=== PATIENT | female | born 2000 | race Caucasian/White ===

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

== ENCOUNTER 2025-01-10 21:57 | Emergency (ER) | payer OTHER ==
[2025-01-10 22:25] VITALS: TEMP 97.7
[2025-01-10] MEDS ORDERED: Zofran 4 MG/2 ML VIAL ONE (22:29)
[2025-01-10] MEDS ORDERED: MORPHINE SULFATE 2 MG INJ ONE (22:30)
[2025-01-10] MEDS ORDERED: Sodium Chloride 0.9% 1000 ML 1,000 ML ONE ×2 (22:30→23:53)
--- NOTE | 2025-01-10 22:31 | ERPHSYRPT ---
- History of Present Illness Time Seen by Provider: 01/10/25 22:25 Historian: patient, family Exam Limitations: no limitations Physician History: This is a send 24-year-old white female patient of nurse practitioner Pamella who was brought into the emergency department accompanied by her mother who is a nurse here at the hospital with a complaint of epigastric pain for approximately 2 to 3 days. Today she had vomiting. Patient has a history of gastroesophageal reflux disease and earlier this morning she took her omeprazole. The patient, 3 days ago, underwent wisdom teeth extraction. Postoperatively she was given antibiotic and Toradol. Because of her symptoms, she was told by her primary care provider and dentist to stop taking those medications. Patient has not had any diarrhea or flulike symptoms. Patient underwent an upper and lower endoscopy in July 2024 and per patient and her mother there were no abnormalities. Patient does not have a history of bulimia. Timing/Duration: day(s) (3) Activities at Onset: none Quality: aching Abdominal Pain Onset Location: epigastric Pain Radiation: no radiation Severity of Pain-Max: mild (Moderate) Severity of Pain-Current: mild (To moderate) Modifying Factors: Improves With: vomiting Associated Symptoms: loss of appetite, nausea, vomiting Previous symptoms: no prior history, no recent treatment Allergies/Adverse Reactions: Penicillins Adverse Reaction (Verified 01/10/25 22:03) Vomiting Hx Tetanus, Diphtheria Vaccination/Date Given: Yes Hx Influenza Vaccination/Date Given: No Hx Pneumococcal Vaccination/Date Given: No Travel Risk - International Travel Have you traveled outside of the country in past 3 weeks: No - Emerging Infectious Disease Are you exhibiting symptoms associated with any current EIDs: No - Review of Systems Constitutional: No Symptoms Eyes: No Symptoms Ears, Nose, & Throat: No Symptoms Respiratory: No Symptoms Cardiac: No Symptoms Abdominal/Gastrointestinal: Abdominal Pain (Gastric pain), Nausea, Vomiting, Appetite Changes Genitourinary Symptoms: No Symptoms Musculoskeletal: No Symptoms Skin: No Symptoms Neurological: No Symptoms Psychological: No Symptoms Endocrine: No Symptoms Hematologic/Lymphatic: No Symptoms Immunological/Allergic: No Symptoms All Other Systems: Reviewed and Negative - Past Medical History Pertinent Past Medical History: No - Past Surgical History Past Surgical History: No Other Surgical History: egd/colonoscopy - Female History Hx Now: No - Social History Drug Use: none - Nursing Vital Signs Nursing Vital Signs: Initial Vital Signs Temperature 97.7 F 01/10/25 22:03 Pulse Rate 66 01/10/25 22:03 Respiratory Rate 16 01/10/25 22:03 Blood Pressure 141/73 01/10/25 22:03 O2 Sat by Pulse Oximetry 99 01/10/25 22:03 Pain Scale Pain Intensity 4 - Physical Exam General Appearance: mild distress, alert, anxiety, thin Eye Exam: PERRL/EOMI, eyes nml inspection Ears, Nose, Throat Exam: normal ENT inspection, moist mucous membranes Neck Exam: normal inspection, non-tender, supple, full range of motion Respiratory Exam: normal breath sounds, lungs clear, airway intact, No chest tenderness, No respiratory distress Cardiovascular Exam: regular rate/rhythm, normal heart sounds, normal peripheral pulses Gastrointestinal/Abdomen Exam: soft, normal bowel sounds, tenderness (Epigast rium to palpation), guarding (Epigastrium to palpation), No rebound Pelvic Exam: not done Rectal Exam: not done Back Exam: normal inspection, normal range of motion, No CVA tenderness, No vertebral tenderness Extremity Exam: normal inspection, normal range of motion, pelvis stable Neurologic Exam: alert, oriented x 3, cooperative, 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 as tested, nml cerebellar function, nml station & gait, sensation nml Skin Exam: normal color, warm, dry Lymphatic Exam: No adenopathy SpO2 Interpretation: normal O2 Delivery: Room Air - Course Nursing assessment & vital signs reviewed: Yes Ordered Tests: Active Orders 24 hr Category Date Time Status IV Insertion STAT Care 01/10/25 22:17 Active ABDOMEN AND PELVIS W/0 CONTRAS [CT] Stat Exams 01/10/25 22:18 Completed AMYLASE Stat Lab 01/10/25 22:45 Completed CBC W DIFF Stat Lab 01/10/25 22:45 Completed CMP Stat Lab 01/10/25 22:45 Completed CULTURE,URINE Stat Lab 01/10/25 22:26 Received HCG QUALITATIVE, URINE Stat Lab 01/10/25 22:45 Completed LIPASE Stat Lab 01/10/25 22:45 Completed Lactic Acid Stat Lab 01/10/25 22:17 Completed UA W/RFX UR CULTURE Stat Lab 01/10/25 22:26 Completed Medication Summary Generic Name Dose Route Start Last Admin Trade Name Freq PRN Reason Stop Dose Admin Sodium Chloride 1,000 mls @ 999 mls/hr 01/10/25 23:50 01/10/25 23:54 Sodium Chloride 0.9% 1000 Ml IV 01/11/25 00:50 999 mls/hr .Q1H1M STA Administration Discontinued Medications Generic Name Dose Route Start Last Admin Trade Name Santiago PRN Reason Stop Dose Admin Sodium Chloride 1,000 mls @ 999 mls/hr 01/10/25 22:17 01/10/25 23:37 Sodium Chloride 0.9% 1000 Ml IV 01/10/25 23:17 Infused .Q1H1M STA Infusion Sodium Chloride Confirm 01/10/25 22:30 Sodium Chloride 0.9% 1000 Ml Administered 01/10/25 22:31 Dose 1,000 mls @ ud .ROUTE .STK-MED ONE Sodium Chloride Confirm 01/10/25 23:53 Sodium Chloride 0.9% 1000 Ml Administered 01/10/25 23:54 Dose 1,000 mls @ ud .ROUTE .STK-MED ONE Ceftriaxone Sodium 1 gm in 100 mls @ 200 mls/hr 01/11/25 00:03 01/11/25 00:36 Rocephin 1 Gm / 100 Ml Nacl IV 01/11/25 00:32 Infused STAT ONE Infusion Ceftriaxone Sodium Confirm 01/11/25 00:04 Rocephin 1 Gm / 100 Ml Nacl Administered 01/11/25 00:05 Dose 1 gm in 100 mls @ ud IV .STK-MED ONE Morphine Sulfate 2 mg 01/10/25 22:28 01/10/25 22:34 Morphine Sulfate 2 Mg/Ml Inj IV 01/10/25 22:29 2 mg STAT ONE Administration Morphine Sulfate Confirm 01/10/25 22:30 Morphine Sulfate 2 Mg/Ml Inj Administered 01/10/25 22:31 Dose 2 mg .ROUTE .STK-MED ONE Ondansetron HCl 4 mg 01/10/25 22:17 01/10/25 22:34 Ondansetron Hcl 4 Mg/2 Ml Vial IV 01/10/25 22:18 4 mg STAT ONE Administration Ondansetron HCl Confirm 01/10/25 22:29 Ondansetron Hcl 4 Mg/2 Ml Vial Administered 01/10/25 22:30 Dose 4 mg .ROUTE .STK-MED ONE Lab/Rad Data: Laboratory Result Diagrams 01/10/25 22:45 01/10/25 22:45 Laboratory Results 01/10/25 01/10/25 01/10/25 Range/Units 22:45 22:45 22:45 WBC 17.3 H (3.98-10.04) x10^3/uL RBC 4.92 (3.93-5.22) x10^6/uL Hgb 14.9 (11.2-15.7) g/dL Hct 43.8 (34.1-44.9) % MCV 89.0 (79.4-94.8) fL MCH 30.3 (25.6-32.2) pg MCHC 34.0 (32.2-35.5) g/dL RDW 11.9 (11.7-14.4) % Plt Count 333 (182-369) x10^3/uL MPV 11.7 (9.4-12.3) fL Gran % 75.7 H (34.0-71.1) % Immature Gran % (Auto) 0.4 (0.001-0.429) % Nucleat RBC Rel Count 0.0 (0.00-0.2) % Eos # (Auto) 0.01 L (0.04-0.36) x10^3/uL Immature Gran # (Auto) 0.07 H (0.001-0.031) x10^3u/L Absolute Lymphs (auto) 2.39 (1.18-3.74) x10^3/uL Absolute Monos (auto) 1.64 H (0.24-0.86) x10^3/uL Absolute Nucleated RBC 0.00 (0.00-0.012) x10^3u/L Lymphocytes % 13.8 L (19.3-51.7) % Monocytes % 9.5 (4.7-12.5) % Eosinophils % 0.1 L (0.7-5.8) % Basophils % 0.5 (0.1-1.2) % Absolute Granulocytes 13.08 H (1.56-6.13) x10^3/uL Basophils # 0.09 H (0.01-0.08) x10^3/uL Sodium 137 (135-145) mmol/L Potassium 4.4 (3.5-5.1) mmol/L Chloride 96 L (98-107) mmol/L Carbon Dioxide 27 (22-30) mmol/L Anion Gap 18.7 H (5-15) MEQ/L BUN 14 (7-17) mg/dL Creatinine 0.81 (0.52-1.04) mg/dL Estimated GFR 104.5 ML/MIN Glucose 94 (74-106) mg/dL Lactic Acid (0.4-2.0) Calcium 9.8 (8.4-10.2) mg/dL Total Bilirubin 1.30 (0.2-1.3) mg/dL AST 38 H (14-36) U/L ALT 19 (0-35) U/L Alkaline Phosphatase 44 (38-126) U/L Serum Total Protein 8.4 H (6.3-8.2) g/dL Albumin 4.9 (3.5-5.0) g/dL Amylase 89 (30-110) U/L Lipase 68 (23-300) U/L Urine Color (Yellow) Urine Appearance (Clear) Urine pH (4.6-8.0) Ur Specific [place] (1.005-1.030) Urine Protein (Negative) Urine Glucose (UA) (Negative) mg/dL Urine Ketones (Negative) Urine Blood (Negative) Urine Nitrite (Negative) Urine Bilirubin (Negative) Urine Urobilinogen (0.2) mg/dL Ur Leukocyte Esterase (Negative) U Hyaline Cast (Auto) (0-2) /LPF Urine Microscopic RBC (0-5) /HPF Urine Microscopic WBC (0-5) /HPF Ur Epithelial Cells (None Seen) /HPF Urine Bacteria (None Seen) /HPF Urine Culture Reflexed (NO) Urine HCG, Qual NEGATIVE (NEGATIVE) Slides for Path Review YES 01/10/25 01/10/25 Range/Units 22:26 22:17 WBC (3.98-10.04) x10^3/uL RBC (3.93-5.22) x10^6/uL Hgb (11.2-15.7) g/dL Hct (34.1-44.9) % MCV (79.4-94.8) fL MCH (25.6-32.2) pg MCHC (32.2-35.5) g/dL RDW (11.7-14.4) % Plt Count (182-369) x10^3/uL MPV (9.4-12.3) fL Gran % (34.0-71.1) % Immature Gran % (Auto) (0.001-0.429) % Nucleat RBC Rel Count (0.00-0.2) % Eos # (Auto) (0.04-0.36) x10^3/uL Immature Gran # (Auto) (0.001-0.031) x10^3u/L Absolute Lymphs (auto) (1.18-3.74) x10^3/uL Absolute Monos (auto) (0.24-0.86) x10^3/uL Absolute Nucleated RBC (0.00-0.012) x10^3u/L Lymphocytes % (19.3-51.7) % Monocytes % (4.7-12.5) % Eosinophils % (0.7-5.8) % Basophils % (0.1-1.2) % Absolute Granulocytes (1.56-6.13) x10^3/uL Basophils # (0.01-0.08) x10^3/uL Sodium (135-145) mmol/L Potassium (3.5-5.1) mmol/L Chloride (98-107) mmol/L Carbon Dioxide (22-30) mmol/L Anion Gap (5-15) MEQ/L BUN (7-17) mg/dL Creatinine (0.52-1.04) mg/dL Estimated GFR ML/MIN Glucose (74-106) mg/dL Lactic Acid 2.0 (0.4-2.0) Calcium (8.4-10.2) mg/dL Total Bilirubin (0.2-1.3) mg/dL AST (14-36) U/L ALT (0-35) U/L Alkaline Phosphatase (38-126) U/L Serum Total Protein (6.3-8.2) g/dL Albumin (3.5-5.0) g/dL Amylase (30-110) U/L Lipase (23-300) U/L Urine Color Yellow (Yellow) Urine Appearance Clear (Clear) Urine pH 6.0 (4.6-8.0) Ur Specific [place] 1.020 (1.005-1.030) Urine Protein 30 (Negative) Urine Glucose (UA) Negative (Negative) mg/dL Urine Ketones 80 A (Negative) Urine Blood Moderate A (Negative) Urine Nitrite Negative (Negative) Urine Bilirubin Negative (Negative) Urine Urobilinogen 1.0 A (0.2) mg/dL Ur Leukocyte Esterase Small A (Negative) U Hyaline Cast (Auto) 3-5 A (0-2) /LPF Urine Microscopic RBC 51-100 A (0-5) /HPF Urine Microscopic WBC 6-10 A (0-5) /HPF Ur Epithelial Cells None Seen (None Seen) /HPF Urine Bacteria None Seen (None Seen) /HPF Urine Culture Reflexed YES (NO) Urine HCG, Qual (NEGATIVE) Slides for Path Review - Progress Progress: improved, pain not gone completely Progress Note: 01/10/25 22:29 My medical decision making and the assignment of moderate complexity to this patient's medical issue today is based on review of the patient's past medical history, review of the patient's medication list, review the patient drug allergy list, history present illness and physical findings on examination. The workup in this patient includes placement of intravenous line, infusion of crystalloid solution, infusion of Zofran, infusion of morphine, CBC, CMP, amylase, lipase, urinalysis, urine test, CT scan of the abdomen pelvis without contrast. Differential diagnosis includes is not limited to gastritis, peptic ulcer disease, cholelithiasis/cholecystitis, pancreatitis 01/11/25 00:04 I interpreted the laboratory data results. Based on the laboratory data results, the patient has dehydration, urinary tract infection and leukocytosis. Her dehydration and urinary tract infection could have led to her vomiting and this vomiting could have led to leukocytosis. A urinary tract alone could lead to leukocytosis as well. Patient is not truly allergic to penicillin but her symptoms coincided with the timing of her starting her penicillin. CT scan of the abdomen pelvis without contrast was interpreted by the radiologist and I reviewed the impression. The impression states bilateral micro calculi of the kidneys. There is no evidence of hydronephrosis or hydroureter. There is no evidence of appendicitis. There is no free air and there is no free fluid present. 01/11/25 00:45 Patient reexamined. She is tolerating clear liquids. She is feeling better Counseled pt/family regarding: lab results, diagnosis, rad results Medical Desision Making - Independent Historian Additional History obtained from: Mother - Diagnostic Testing Diagnostic test were ordered, analyzed, and reviewed by me: Yes Radiological Interpretation: Reviewed by me, Teleradiologist Report - Risk of complications The pt has a mod risk of morbidity or mortality based on: Need for prescription drug management - Departure Departure Disposition: Home Clinical Impression: Leukocytosis, UTI (urinary tract infection), Bilateral renal stones, Dehydration Condition: Stable Critical Care Time: No Referrals: SON ORNELAS, PROFESSOR OF [employer] [Primary Care Provider] - Follow up/PCP as directed Additional Instructions: Drink plenty of clear liquids before advancing your diet. Take your antibiotics as prescribed Prescriptions: Ondansetron ODT 4 MG [Zofran Odt 4 mg] 4 mg PO Q6H PRN PRN #10 tablet PRN Reason: Vomiting Cephalexin Mh 500 mg [Keflex 500 mg] 500 mg PO TID #15 cap
[2025-01-10] MEDS: MORPHINE SULFATE 2 MG INJ IV ONE (22:34)
[2025-01-10] MEDS: Sodium Chloride 0.9% 1000 ML 1,000 ML IV STA ×2 (22:34→23:54)
[2025-01-10] MEDS: Zofran 4 MG/2 ML VIAL IV ONE (22:34)
[2025-01-10 22:39] LABS: Appearance Clear (Clear); Bacteria None Seen /HPF (None Seen); Bilirubin Negative (Negative); Blood Moderate (Negative); Epithelial Cells None Seen /HPF (None Seen); Glucose, Urine Negative (Negative); Ketones 80 (Negative); Leukocyte Esterase Small (Negative); Nitrite Negative (Negative); Protein,Urine Dip 30 (Negative); RBC 51-100 /HPF (0-5)
[2025-01-10 23:06] LABS: Absolute Neutrophil Ct (ANC) 13.08 x10^3/uL (1.56-6.13); BASOPHIL % 0.5 % (0.1-1.2); Basophil (Absolute #) 0.09 x10^3/uL (0.01-0.08); Eosinophil % 0.1 % (0.7-5.8); Eosinophil (Absolute #) 0.01 x10^3/uL (0.04-0.36); Hematocrit 43.8 % (34.1-44.9); Hemoglobin 14.9 g/dL (11.2-15.7); IMMATURE GRAN # 0.07 x10^3u/L (0.001-0.031); IMMATURE GRAN % 0.4 % (0.001-0.429); Lymphocyte (Absolute #) 2.39 x10^3/uL (1.18-3.74); Lymphocytes % 13.8 % (19.3-51.7); Mean Corpuscular Hemoglobin 30.3 pg (25.6-32.2); Mean Platelet Volume 11.7 fL (9.4-12.3); Monocyte (Absolute #) 1.64 x10^3/uL (0.24-0.86); Monocytes % 9.5 % (4.7-12.5); Neutrophil % 75.7 % (34.0-71.1); Platelet Count 333 x10^3/uL (182-369); Red Blood Count 4.92 x10^6/uL (3.93-5.22); Red Cell Distribution Width 11.9 % (11.7-14.4); White Blood Count 17.3 x10^3/uL (3.98-10.04)
[2025-01-10 23:07] LABS: HCG URINE TEST NEGATIVE (NEGATIVE)
[2025-01-10 23:11] LABS: ALBUMIN 4.9 g/dL (3.5-5.0); ANION GAP 18.7 MEQ/L (5-15); BILIRUBIN,TOTAL 1.3 mg/dL (0.2-1.3); Calcium 9.8 mg/dL (8.4-10.2); Creatinine 1 0.81 mg/dL (0.52-1.04); EST GLOMERULAR FILTRATION RATE 104.5 ML/MIN; Potassium 4.4 mmol/L (3.5-5.1); Total Protein 8.4 g/dL (6.3-8.2)
--- NOTE | 2025-01-10 23:41 | XRAY ---
CLINICAL HISTORY: Epigastric ABD pain; vomiting COMPARISON: 10:26:20 ELECTRONICS TESTER TECHNIQUE: Multiple contiguous axial images were obtained from the level of diaphragm to the pubis symphysis. This study was acquired without administration of iodinated contrast material, given the patients indications for the examination. Coronal and sagittal reformatted images were generated and reviewed to improve anatomic localization and optimize lesion detection. CT scan was performed according to ALARA (as low as reasonable achievable). FINDINGS: The visualized lung bases are clear. ABDOMEN/PELVIS: The liver is normal in size and attenuation. No focal liver lesions are seen. There is no intra or extrahepatic biliary ductal dilatation. The gallbladder is unremarkable. The spleen, pancreas, and adrenal glands are unremarkable. The kidneys are normal in size and attenuation. There is no hydronephrosis or perinephric fat stranding. No renal masses are identified. The ureters are normal in caliber and no ureteral calculi are seen. The bladder is normal in contour. Multiple tiny 2-3 mm sized non-obstructive calculi noted in bilateral kidneys (L>R) No evidence of focal or diffuse bowel wall thickening or evidence of bowel obstruction is seen. The appendix is visualized in the right lower quadrant and appears within normal limits. No adenopathy or fluid collections are seen. The aorta is normal in caliber. No aggressive appearing osseous lesions are identified. IMPRESSION: Multiple tiny 2-3 mm sized non-obstructive calculi noted in bilateral kidneys (L>R): stable Electronically Signed by: Luiz Juarez MD. (01/10/2025 23:36:58 EDT)
[2025-01-10 23:53] LABS: Slide Review 1 YES
[2025-01-11] MEDS ORDERED: ROCEPHIN 1 GM / 100 ML NaCl 1 GM/100 ML IVPB IV ONE (00:04)
[2025-01-11] MEDS: ROCEPHIN 1 GM / 100 ML NaCl 1 GM/100 ML IVPB IV ONE (00:06)
[2025-01-11 01:04] VITALS: BP 120/78; PULSE 89; RESP 15; O2SAT 99
== END 2025-01-11 01:05 | disposition home or self-care (01) ==
LOC: ED 21:57
DX: N39.0 Urinary tract infection, site not specified (principal); N20.0 Calculus of kidney; D72.829 Elevated white blood cell count, unspecified; E86.0 Dehydration; R10.13 Epigastric pain; R11.2 Nausea with vomiting, unspecified; Z79.899 Other long term (current) drug therapy
CPT/HCPCS: 36415; 74176; 80053; 81001; 81025; 82150; 83605; 83690; 85025; 87077; 87086; 87186; 96361; 96365; 96374; 96375; 99284; J0696; J2270; J2405

== ENCOUNTER 2025-02-04 05:57 | Day surgery (SDC) | payer OTHER ==
[2025-02-04 06:27] LABS: HCG URINE TEST NEGATIVE (NEGATIVE)
[2025-02-04] MEDS ORDERED: ASTRINGYN 8 GM TP ONE (06:34)
[2025-02-04] MEDS ORDERED: Lugol's Solution ONE (06:34)
[2025-02-04] MEDS ORDERED: XYLOCAINE 1%/Epi 1:100000 MDV 20 ML ONE (06:34)
[2025-02-04] MEDS ORDERED: Lactated Ringers 1,000 ML IV ONE (06:45)
[2025-02-04] MEDS: Lactated Ringers 1,000 ML IV SCH (06:55)
[2025-02-04] MEDS: CEFAZOLIN 2 GM/100 ML NaCl 2 GM/100 ML IVPB IV SCH (06:56)
[2025-02-04] MEDS ORDERED: Zofran 4 MG/2 ML VIAL ONE (07:40)
[2025-02-04] MEDS ORDERED: propofoL IV ONE (07:40)
[2025-02-04] MEDS ORDERED: dexAMETHasone sodium phosphate ONE (07:40)
[2025-02-04] MEDS ORDERED: TORAdol 30 mg Injection ONE (09:02)
[2025-02-04 09:28] VITALS: RESP 16
[2025-02-04 09:38] VITALS: BP 108/75; PULSE 80; O2SAT 100
[2025-02-04 09:46] VITALS: TEMP 98.4
--- NOTE | 2025-02-06 09:03 | OP ---
SURGERY DATE/TIME: 02/04/2025 [id number] PREOPERATIVE DIAGNOSIS: Severe cervical dysplasia. POSTOPERATIVE DIAGNOSIS: Severe cervical dysplasia. PROCEDURE: Loop electrosurgical excision procedure or LEEP. SURGEON: Xavier Fischer DO SHELL CORE AND MOLDING SUPERVISOR: Alicia Cee ANESTHESIA: General. QUANTITATIVE BLOOD LOSS: Minimal. COMPLICATIONS: None. INDICATIONS: The risks, benefits, indications, and alternatives of the procedure were reviewed with the patient prior to the procedure. Patient understood the risks of infection, bleeding, possible incompetent cervix that may be associated with this surgery. She understands her risks and desires to have this procedure as a possible means to alleviate her medical condition. DESCRIPTION OF PROCEDURE AND FINDINGS: At this point, patient was taken to the operating room, given general sedation, placed in the dorsal lithotomy position, prepped and draped in the usual sterile fashion. A coated speculum was then placed in the patient's vagina, and the cervix was then injected circumferentially with 1% lidocaine with epinephrine. At this point, a loop instrument was then used to excise the ectocervical portion with an in depth of 7 to 8 mm of ectocervical tissue that was excised in a [id number] motion, where an additional 2 to 3 mm of endocervical tissue was excised in a similar fashion. After removal of the endo ectocervical tissue, the loop geomorphologist ball was placed on the surface of the cervix for further hemostasis. At this point, all instruments were then removed from the patient's vaginal region. The patient was taken out of dorsal lithotomy position, was taken out of anesthesia, was then taken to the recovery room in stable condition. All instruments and laps were accounted for x2.
== END 2025-02-04 09:43 | disposition home or self-care (01) ==
LOC: SDC 05:57
PROVIDERS: ATTEND Obstetrics & Gynecology
DX: D06.9 Carcinoma in situ of cervix, unspecified (principal)
CPT/HCPCS: 57460; 81025; J0690; J1100; J1885; J2405; J2704; A9270-GY